=== PATIENT | female | born 1980 | race Caucasian/White ===

== ENCOUNTER 2020-05-11 12:44 | Outpatient (CLI) | payer BC ==
--- NOTE | 2020-05-11 14:23 | NM ---
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 TECHNIQUE: Patient was counseled regarding nature of therapy, risks and benefits, and radiation precautions, and the likelihood of subsequent hypothyroidism requiring lifelong thyroid hormone replacement therapy. Patient was given opportunity to ask questions. She had no questions. Patient was given 11.2 mCi I-131 in a capsule P.O. Patient will follow-up with Dr. Branham. IMPRESSION: Radioiodine radioablation therapy with 11.2 mCi I-131.
== END 2020-05-11 12:45 | disposition home or self-care (01) ==
LOC: NM 12:44
PROVIDERS: ATTEND Internal Medicine Endocrinology, Diabetes & Metabolism
DX: E05.80 Other thyrotoxicosis without thyrotoxic crisis or storm (principal)
CPT/HCPCS: 79005; A9517

== ENCOUNTER 2020-11-24 09:47 | Outpatient (CLI) | payer BC | END 2020-11-24 09:48 | disposition home or self-care (01) | LOC: BICMRI 09:47 | DX: M54.42 Lumbago with sciatica, left side (principal); M53.3 Sacrococcygeal disorders, not elsewhere classified | CPT/HCPCS: 72148 ==

== ENCOUNTER 2024-06-11 11:01 | Outpatient (CLI) | payer BC | END 2024-06-11 11:02 | disposition home or self-care (01) | LOC: BICMAMMO 11:01 | PROVIDERS: ATTEND Obstetrics & Gynecology | DX: Z12.31 Encounter for screening mammogram for malignant neoplasm of breast (principal); N63.20 Unspecified lump in the left breast, unspecified quadrant; Z80.3 Family history of malignant neoplasm of breast | CPT/HCPCS: 77067 ==

== ENCOUNTER 2024-06-17 08:27 | Outpatient (CLI) | payer BC | END 2024-06-17 08:28 | disposition home or self-care (01) | LOC: BICMAMMO 08:27 | PROVIDERS: ATTEND Obstetrics & Gynecology | DX: N63.21 Unspecified lump in the left breast, upper outer quadrant (principal) | CPT/HCPCS: G0279 ==